=== PATIENT | female | born 1935 | race Caucasian/White ===

== ENCOUNTER → 2016-05-30 | Outpatient (CLI) | payer MEDICARE ==
[2016-05-30 08:01] LABS: BASOPHILS % (AUTO) 1 % (0-2); EOSINOPHILS # (AUTO) 0.2 10^3uL; EOSINOPHILS % (AUTO) 2 % (0-4); LYMPHOCYTES # (AUTO) 2.3 X10^3; MEAN CORPUSCULAR VOLUME 93 FL (80-100); MEAN PLATELET VOLUME 10.5 FL (6.0-9.5); MONOCYTES % (AUTO) 10 % (3-11); NEUTROPHILS # (AUTO) 5.9 X10^3; NEUTROPHILS % (AUTO) 63 % (51-67); PLATELET COUNT 270 10^3uL (150-450); WHITE BLOOD COUNT 9.38 10^3uL (4.0-11.0)
[2016-05-30 08:12] LABS: MEAN CORPUSCULAR HEMOGLOBIN 31.5 PG (26.0-34.0)
[2016-05-30 08:52] LABS: ERYTHROCYTE SEDIMENTATION RT* 16 mm/hr (0-23)
[2016-05-30 09:45] LABS: ALBUMIN 3.9 g/dL (3.4-5.0); ANION GAP 14.5 MEQ/L (3-15); CALCULATED IONIZED CALCIUM 4.8 mg/dL (3.8-4.6); TOTAL PROTEIN 6.9 g/dL (6.4-8.5)
== END ==
LOC: LAB 05-29 13:18
PROVIDERS: ATTEND Internal Medicine
DX: Z00.00 Encounter for general adult medical examination without abnormal findings (principal); G63 Polyneuropathy in diseases classified elsewhere; M81.0 Age-related osteoporosis without current pathological fracture; E78.4 Other hyperlipidemia; M35.3 Polymyalgia rheumatica
CPT/HCPCS: 36415; 80053; 80061; 82306; 84443; 85025; 85652

== ENCOUNTER → 2016-06-21 | Outpatient (CLI) | payer MEDICARE | LOC: RAD 07:58 | PROVIDERS: ATTEND Internal Medicine Nephrology | DX: M81.0 Age-related osteoporosis without current pathological fracture (principal); M85.89 Other specified disorders of bone density and structure, multiple sites | CPT/HCPCS: 77080 ==

== ENCOUNTER → 2016-07-13 | Outpatient (CLI) | payer MEDICARE ==
[~2016-07-13] VITALS: Ht 149.9 cm; Wt 49.9 kg
[~2016-07-13] MED LIST: DENOSUMAB 60 MG/1 ML SQ SCH
[2016-07-13 14:55] VITALS: BP 127/74
--- NOTE | 2016-07-13 14:55 | NUR ---
PHARMACIST FINISHES TALKING WITH PT RE MEDICATION. CL
== END ==
LOC: EUOP 14:14
PROVIDERS: ATTEND Internal Medicine Nephrology
DX: M81.0 Age-related osteoporosis without current pathological fracture (principal)
CPT/HCPCS: 96372; J0897

== ENCOUNTER → 2016-07-24 | Outpatient (CLI) | payer MEDICARE | LOC: LAB 08:26 | PROVIDERS: ATTEND Internal Medicine Nephrology | DX: E83.51 Hypocalcemia (principal) | CPT/HCPCS: 36415; 82310 ==

== ENCOUNTER → 2016-08-31 | Outpatient (REF) | payer MEDICARE ==
[2016-08-31 16:59] LABS: CREATINE KINASE < 20 U/L (30-135)
== END ==
LOC: LAB 15:44
PROVIDERS: ATTEND Internal Medicine
DX: M35.3 Polymyalgia rheumatica (principal); M81.0 Age-related osteoporosis without current pathological fracture
CPT/HCPCS: 82310; 82550; 85652